=== PATIENT | female | born 1975 | race Caucasian/White ===

== ENCOUNTER 2017-09-18 08:47 | Day surgery (SDC) | payer BC ==
[~2017-09-18 08:47] MED LIST: Buffered Lidocaine 0.9% SYRIN* 5 ML/SYR SYRINGE INTRADERM ONE; Dexamethasone IV* 4 MG/ML 1 ML (4 MG) IV SLOW PU ONE; Famotidine IV* 10 MG/ML 2 ML (20 mg) IV ONE
[2017-09-18] MEDS ORDERED: Buffered Lidocaine 0.9% SYRIN* 5 ML/SYR SYRINGE ONE (08:51)
[2017-09-18] MEDS ORDERED: Famotidine IV* 10 MG/ML 2 ML (20 mg) ONE (08:51)
[2017-09-18] MEDS ORDERED: Dexamethasone IV* 4 MG/ML 1 ML (4 MG) ONE (08:51)
[2017-09-18] MEDS ORDERED: fentaNYL* 50 MCG/ML 2 ML VIAL (100 MCG VIAL) ONE ×2 (10:02→11:46)
[2017-09-18] MEDS ORDERED: Ketorolac INJ* 30 MG/ML 1 ML VIAL ONE (10:32)
[2017-09-18] MEDS ORDERED: Chloroprocaine 2%* 20 ML VIAL ONE (10:32)
[2017-09-18] MEDS ORDERED: Propofol* 10 MG/ML 20 ML BTL IV PUSH ONE (10:32)
[2017-09-18] MEDS ORDERED: Ondansetron INJ* 2 MG/ML VIAL ONE (10:32)
[2017-09-18] MEDS ORDERED: Naloxone* 0.4 MG/ML 1 ML VIAL IV PRN (10:37)
[2017-09-18] MEDS ORDERED: oxyCODONE/Acetamin 5/325 MG* TAB PO PRN (10:37)
[2017-09-18] MEDS ORDERED: fentaNYL* 50 MCG/ML 2 ML VIAL (100 MCG VIAL) IV PRN (10:37)
[2017-09-18] MEDS ORDERED: DiMENhydriNATE IV* 50 MG/ML VIAL IV PUSH PRN (10:37)
[2017-09-18] MEDS ORDERED: Ondansetron INJ* 2 MG/ML VIAL IV PRN (10:37)
[2017-09-18] MEDS ORDERED: Silver Nitrate/Potassium Nitr* 1 EA STICK ONE (10:48)
[2017-09-18] MEDS ORDERED: oxyCODONE/Acetamin 5/325 MG* TAB ONE (11:47)
[2017-09-18 12:41] VITALS: BP 117/77
--- NOTE | 2017-09-18 20:56 | OP ---
OPERATIVE REPORT: DATE OF OPERATION: 09/18/17 DATE OF : 73 SURGEON: Benedict Perla MD ANESTHESIA: Spinal PRE-OP DIAGNOSIS: Menorrhagia. POST-OP DIAGNOSIS: Menorrhagia. OPERATIVE PROCEDURE: D and C, hysteroscopy, endometrial ablation. COMPLICATIONS: None. FINDINGS: On exam under anesthesia, the uterus was anteverted. It sounded to 9 cm. Uterine cavity appeared normal with thickened fluffy endometrium with no polyps or fibroids. DESCRIPTION OF PROCEDURE: The patient identified, procedure identified as a D and C, hysteroscopy, endometrial ablation. The patient was taken to the operating room, prepped and draped in the usual fashion in the dorsal lithotomy position under spinal anesthetic. Two single-tooth tenaculum was placed on the anterior lip of the cervix. The cervix was sounded to 9 cm and the cervix was found to be 3 cm _making the cavity length 6 cm. The hysteroscope was inserted. The above findings were noted. A sharp curette was inserted and sharp curettage was performed until a gritty sensation was felt throughout the circumference. The NovaSure device was opened. The array was checked. The device was placed into the uterine cavity length of 6 cm. The cavity width after manipulation was 4.4 cm making the power setting of 145. The CO2 perforation test was performed and the device passed and NovaSure device was enabled and NovaSure ablation took place for 1 minute and 25 seconds. At the end of the procedure, the device was removed. The hysteroscope was re-inserted and good NovaSure ablation was noted and no perforations were noted in the cavity. All instruments were removed from the vagina. Good hemostasis was verified using silver nitrate. All sponge and instrument counts were correct and the patient returned to recovery room in stable condition. [id number]/[facility] #: [id number] [facility]
== END 2017-09-18 12:56 | disposition home or self-care (01) ==
LOC: OR 08:47
PROVIDERS: ATTEND Obstetrics & Gynecology
DX: N92.0 Excessive and frequent menstruation with regular cycle (principal); N84.1 Polyp of cervix uteri; Z87.891 Personal history of nicotine dependence; E66.3 Overweight
CPT/HCPCS: 81025; 88305; 88342; A9270-GY; J1100; J1885; J2400; J2405; J2704; J3010